=== PATIENT | male | born 1990 | race Caucasian/White ===

== ENCOUNTER 2024-09-02 18:51 | Emergency (ER) | payer BC ==
[2024-09-02] MEDS: Ketorolac 30 MG/ML SDV IM ONE (19:21)
[2024-09-02] MEDS: Lidocaine 2% Viscous Solution 15 ML UD PO ONE (19:23)
[2024-09-02] MEDS: Amoxicillin/Clavulanate K 875-125 MG Tab PO ONE (20:26)
== END 2024-09-02 20:33 | disposition home or self-care (01) ==
LOC: MW.ED 18:51
DX: H66.92 Otitis media, unspecified, left ear (principal); Z79.899 Other long term (current) drug therapy
CPT/HCPCS: 71046; 87651; 96372; 99285; A9270; J1100; J1885; J7620; 99282